=== PATIENT | male | born 1965 ===

== ENCOUNTER 2016-10-07 20:44 | Emergency (ER) | payer OTHER ==
--- NOTE | 2016-10-07 21:56 | C.PDOC ---
History Of Present Illness 51 year old male who presents to the ER with a complaint of pain to the left ribs. Patient states a garage door fell on him on Thursday and was seen at [facility] at that time; he had an x-ray and CT done and was discharged home. Patient reports he has been mildly sore the last 4 days but today while he was napping he rolled over and felt a "snapping sensation" in his ribs. Since then, patient states the past has worsened and and is exacerbated when he moves or takes deep breaths. Patient took motrin at home with no relief to pain ; denies any PMHx, tobacco use, drug use, or SOB. - HPI Time Seen by Provider: 10/07/16 21:18 Chief Complaint (Nursing): Trauma History Per: Patient History/Exam Limitations: no limitations Onset/Duration Of Symptoms: Hrs Injury Occurred (Timing): Days Ago: (Thursday) Location Of Injury: Left: Chest Recent travel outside of the [place]: No Past Medical History Reviewed: Historical Data, Nursing Documentation, Vital Signs Vital Signs: Last Vital Signs Temp 97.8 F 10/07/16 22:26 Pulse 69 10/07/16 22:26 Resp 20 10/07/16 22:26 BP 132/92 H 10/07/16 22:26 Pulse Ox 97 10/07/16 22:26 - Medical History PMH: No Chronic Diseases Surgical History: No Surg Hx Family History: States: Unknown Family Hx - Social History Hx Alcohol Use: No Hx Substance Use: No - Immunization History Hx Tetanus Toxoid Vaccination: No Hx Influenza Vaccination: No Review Of Systems Constitutional: Negative for: Fever, Chills Cardiovascular: Negative for: Chest Pain, Palpitations Respiratory: Negative for: Cough, Shortness of Breath Gastrointestinal: Negative for: Nausea, Vomiting, Abdominal Pain, Diarrhea Musculoskeletal: Positive for: Other (Left rib pain) Neurological: Negative for: Weakness, Numbness Physical Exam - Physical Exam Appears: Non-toxic Skin: Normal Color, Warm, Dry Head: Atraumatic, Normacephalic Oral Mucosa: Moist Neck: Normal, Supple Chest: Symmetrical, No Deformity, Tenderness (Reproducible tenderness over the left lateral chest wall), No Ecchymosis, No Other (Crepitus) Cardiovascular: Rhythm Regular, No Murmur Respiratory: Normal Breath Sounds, No Rales, No Rhonchi, No Wheezing Gastrointestinal/Abdominal: Soft, No Tenderness Neurological/Psych: Oriented x3, Normal Speech, Normal Cognition ED Course And Treatment - Radiology CXR: Interpreted by Me, Viewed By Me CXR Interpretation: Yes: No Acute Disease - Other Rad Left rib x-ray X-Ray: Interpreted by Me, Viewed By Me Interpretation: Positive rib fracture. Medical Decision Making Medical Decision Making: CXR and left rib x-ray ordered. Toradol administered. 2200 i disc xr results w pt. he is feeling better. disc plan for IS, pain meds, follow up, rtr. Disposition - Disposition Referrals: [facility] [Outside] Disposition: HOME/ ROUTINE Disposition Time: 22:09 Condition: IMPROVED Additional Instructions: Please follow up with a primary doctor. Return to the ER for any worsening symptoms, difficulty breathing, fever, or for any other concerns. Prescriptions: Naproxen [Naprosyn] 500 mg PO Q12H PRN #10 tablet PRN Reason: Pain, Moderate (4-7) oxyCODONE/Acetaminophen [Percocet 5/325 mg Tab] 1 ea PO Q6H PRN #6 tab PRN Reason: Pain, Severe (8-10) Instructions: Rib Fracture (ED) Forms: General Discharge Instructions - Clinical Impression Clinical Impression: Rib fracture - Scribe Statement The provider has reviewed the documentation as recorded by the Scribzhane Ruvalcaba All medical record entries made by the Scribe were at my direction and personally dictated by me. I have reviewed the chart and agree that the record accurately reflects my personal performance of the history, physical exam, medical decision making, and the department course for this patient. I have also personally directed, reviewed, and agree with the discharge instructions and disposition.
[2016-10-07 22:31] VITALS: BP 132/92; PULSE 69; RESP 20; TEMP 97.8; O2SAT 97
--- NOTE | 2016-10-08 08:33 | RAD ---
HISTORY: cp after garage door fell on him COMPARISON: No prior. TECHNIQUE: Chest PA and lateral FINDINGS: LUNGS: Minimal bibasilar atelectasis. PLEURA: No significant pleural effusion identified. No pneumothorax apparent. CARDIOVASCULAR: Normal. OSSEOUS STRUCTURES: Postsurgical changes at the mid right clavicle. VISUALIZED UPPER ABDOMEN: Normal. OTHER FINDINGS: None. IMPRESSION: Mild bibasilar atelectasis. Postsurgical changes of the mid right clavicle
--- NOTE | 2016-10-08 10:10 | RAD ---
Left ribs four views History: Injury. Comparison: None available. Findings: Question subtle lucencies through the posterior lateral left 8th and 9th ribs which may represent small partially non displaced fractures of the left ribs. Clinical correlation to site of pain. No evidence of pneumothorax. Lung mccoy are clear. Heart size within normal limits. Impression: Question subtle lucencies through the posterior lateral left 8th and 9th ribs which may represent small partially non displaced fractures of the left ribs. Clinical correlation to site of pain. If pain persists, consider further evaluation with chest CT.
--- NOTE | 2016-10-09 16:20 | CARD ---
APPROVED REPORT EKG Measurement Heart [id number] <Conclusion> Normal sinus rhythm Normal ECG
== END 2016-10-07 22:26 | disposition home or self-care (01) ==
LOC: C.ER 20:44
DX: S22.42XA Multiple fractures of ribs, left side, initial encounter for closed fracture (principal); W20.8XXA Other cause of strike by thrown, projected or falling object, initial encounter; Y93.89 Activity, other specified; Y92.008 Other place in unspecified non-institutional (private) residence as the place of occurrence of the external cause
CPT/HCPCS: 71020; 71100; 93005; 99285; J1885